=== PATIENT | male | born 1990 | race Caucasian/White ===

== ENCOUNTER 2020-11-15 16:32 | Emergency (ER) | payer OTHER ==
[2020-11-15] MEDS ORDERED: Ketorolac 60 MG/2 ML SDV IM ONE (17:03)
[2020-11-15] MEDS ORDERED: Orphenadrine 60 MG/2 ML Inj IM ONE (17:06)
[2020-11-15] MEDS ORDERED: methylPREDNISolone Sodium Succinate 125 MG/2 ML SDV IM STA (17:29)
--- NOTE | 2020-11-15 17:34 | EDM.PDOC ---
ED HPI GENERAL MEDICAL PROBLEM - General Chief Complaint: General Stated Complaint: BACK HURTING Time Seen by Provider: 11/15/20 17:05 Source of Information: Reports: Patient History Limitations: Reports: No Limitations - History of Present Illness INITIAL COMMENTS - FREE TEXT/NARRATIVE: Estuardo is a 30 yo who presents to the ED with complaints of low back pain. States it started bothering him a couple days ago and felt like he twisted his back. States when getting up from a seated position it seems to get worse. States if he can stretch out his back he seems to help. 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 Admits today he started feeling nauseated from the discomfort. States he was getting numbness down his right leg and tingling in both legs. Denies any bowel or bladder dysfunction. Able to still control voiding and bowel movements. No prior injury to the back. - Related Data Allergies Allergy/AdvReac Type Severity Reaction Status Date / Time buspirone [From BuSpar] Allergy Other Verified 11/15/20 16:49 Home Meds: Home Meds ARIPiprazole [Abilify] 20 mg PO BEDTIME 11/15/20 [History] Amphetamine/Dextroamphetamine [Adderall] 20 mg PO ACBREAKFAST 11/15/20 [History] Ibuprofen 600 mg PO ASDIRECTED PRN 11/15/20 [History] Naproxen Sodium [Aleve] 3 tab PO ASDIRECTED PRN 11/15/20 [History] lamoTRIgine [LaMICtal] 300 mg PO QAM 11/15/20 [History] Past Medical History Cardiovascular History: Reports: Hypertension Psychiatric History: Reports: ADHD, Anxiety, Panic Attack - Past Surgical History HEENT Surgical History: Reports: Adenoidectomy, Tonsillectomy Social & Family History - Tobacco Use Tobacco Use Status *Q: Current Every Day Tobacco User Years of Tobacco use: 15 Packs/Tins Daily: 1 - Caffeine Use Caffeine Use: Reports: Coffee, Energy Drinks - Recreational Drug Use Recreational Drug Use: No ED ROS GENERAL - Review of Systems Review Of Systems: See Below Constitutional: Denies: Fever, Chills HEENT: Reports: No Symptoms Respiratory: Reports: No Symptoms Cardiovascular: Reports: No Symptoms GI/Abdominal: Reports: Nausea. Denies: Abdominal Pain, Constipation, Diarrhea : Reports: No Symptoms Musculoskeletal: Reports: Back Pain, Muscle Stiffness Skin: Reports: No Symptoms Neurological: Reports: Numbness. Denies: Difficulty Walking, Weakness, Gait Disturbance Psychiatric: Reports: Other (ADHD, ADD, Bipolar and allen, states he doing well and stable on current medications. ) ED EXAM, GENERAL - Physical Exam Exam: See Below Exam Limited By: No Limitations General Appearance: Alert, No Apparent Distress Back Exam: Decreased Range of Motion, Muscle Spasm, Paraspinal Tenderness. No: Vertebral Tenderness Extremities: Normal Inspection, Normal Range of Motion Neurological: Oriented, Normal Cognition, Normal Reflexes, No Motor/Sensory Deficits Psychiatric: Normal Affect, Normal Mood Skin Exam: Warm, Dry, Intact, Normal Color, No Rash Course - Vital Signs Last Recorded V/S: Last Vital Signs Temp 97.8 F 11/15/20 16:46 Pulse 87 11/15/20 16:46 Resp 18 11/15/20 16:46 BP 150/95 H 11/15/20 16:46 Pulse Ox 99 11/15/20 16:46 - Orders/Labs/Meds Orders: Active Orders 24 hr Category Date Time Status Lumbar Spine 2 or 3V [CR] Stat Exams 11/15/20 17:05 Taken Meds: Medications Discontinued Medications Generic Name Dose Route Start Last Admin Trade Name Guilleq PRN Reason Stop Dose Admin Ketorolac Tromethamine 60 mg 11/15/20 17:03 Ketorolac 60 Mg/2 Ml Sdv IM 11/15/20 17:04 ONETIME ONE Methylprednisolone Sodium Succinate 125 mg 11/15/20 17:29 11/15/20 17:38 Methylprednisolone Sodium Succinate 125 Mg/2 Ml Sdv IM 11/15/20 17:30 125 mg NOW STA Administration Orphenadrine Citrate 60 mg 11/15/20 17:06 11/15/20 17:31 Orphenadrine 60 Mg/2 Ml Inj IM 11/15/20 17:07 60 mg ONETIME ONE Administration Departure - Departure Time of Disposition: 17:47 Disposition: Home, Self-Care 01 Clinical Impression: Spasm of muscle of lower back Lumbago with sciatica Qualifiers: Chronicity: acute Back pain laterality: bilateral Sciatica laterality: sciatica of right side Qualified Code(s): M54.41 - Lumbago with sciatica, right side - Discharge Information Instructions: Sciatica, [id number] Forms: ED Department Discharge Additional Instructions: 1) [place] 5/325 - 1 tablet every 6 hours as needed for break thru pain. Encourage using Tylenol instead if tolerating with muscle relaxer 2) Flexeril 10mg - 1 tablet every 8 hours as needed for muscle spasms/tightness, may cause drowsiness 3) Prednisone 20mg - 2 tablets daily in am, do not take ibuprofen, aleve, motrin, naproxen, aspirin while taking prednisone. 4) Will schedule with physical therapy in the am and call with appointment time 5) If any bowel or bladder dysfunction as discussed, advised reevaluation. 6) May try heat or ice to low back as well 7) Recommend resting tomorrow, refrain from driving excavator with bouncing around, etc.. 8) Follow up with primary in [place] is pain persists for possible further imaging and also to have blood pressure rechecked. Sepsis Event Note (ED) - Evaluation Sepsis Screening Result: No Definite Risk - Focused Exam Vital Signs: Vital Signs Temp Pulse Resp BP Pulse Ox 11/15/20 16:46 97.8 F 87 18 150/95 H 99 - Problem List & Annotations (1) Lumbago with sciatica SNOMED Code(s): 915930317 Code(s): M54.40 - LUMBAGO WITH SCIATICA, UNSPECIFIED SIDE Status: Acute Qualifiers: Chronicity: acute Back pain laterality: bilateral Sciatica laterality: sciatica of right side Qualified Code(s): M54.41 - Lumbago with sciatica, right side (2) Spasm of muscle of lower back SNOMED Code(s): 49707711948905860 Code(s): M62.830 - MUSCLE SPASM OF BACK Status: Acute - My Orders Last 24 Hours: My Active Orders 11/15/20 17:05 Lumbar Spine 2 or 3V [CR] Stat - Assessment/Plan Last 24 Hours: My Active Orders 11/15/20 17:05 Lumbar Spine 2 or 3V [CR] Stat Plan: X-rays of the lumbar spine did not show any acute findings. Spine alignment is satisfactory. Patient was given IM injections of Solu Medrol and Norflex which he admits already to some relief. Will plan for discharge, see additional instructions for complete details.
[2020-11-15] MEDS ORDERED: Take Home: Cyclobenzaprine 10 MG Tab, 4 Tab Pack PO ONE (17:46)
[2020-11-15] MEDS ORDERED: Take Home: Acetaminophen/HYDROcodone 325-5 MG, 2 Tab Pack PO ONE (17:46)
== END 2020-11-15 18:10 | disposition home or self-care (01) ==
LOC: CC.ED 16:32
DX: M62.830 Muscle spasm of back (principal); M54.41 Lumbago with sciatica, right side; I10 Essential (primary) hypertension; Z88.8 Allergy status to other drugs, medicaments and biological substances; Z72.0 Tobacco use
CPT/HCPCS: 72100; 96372; 99283-25; A9270-GY; J2360; J2930